=== PATIENT | male | born 1975 | race African-American/Black ===

== ENCOUNTER 2017-03-05 14:44 | Emergency (ER) | payer SELFPAY ==
[2017-03-05 15:01] VITALS: BP 143/87
[2017-03-05] MEDS ORDERED: METOCLOPRAMIDE HCL INJ/PF 10 MG/2 ML SDV IM ONE (17:31)
[2017-03-05] MEDS ORDERED: DIPHENHYDRAMINE HCL 50 MG/ML VIAL IM ONE (17:32)
--- NOTE | 2017-03-05 17:33 | ER Document Report ---
ED Headache - General Chief Complaint: Headache Stated Complaint: HEADACHE,DIZZINESS Time Seen by Provider: 03/05/17 17:21 Mode of Arrival: Ambulatory Information source: Patient Notes: This is a 42-year-old -[place] male with a history of migraines who presents with severe headache. He states that his headache began as a migraine about 1 week ago but that he has not been able to get any relief. He states that he was seen at urgent care 3 days ago and was prescribed Flexeril and prednisone however he is taking his medications with no relief. He denies any fevers or chills. He has had no neck pain or neck stiffness. No nausea or vomiting. No vision changes. TRAVEL OUTSIDE OF THE [place] IN LAST 30 DAYS: No - Related Data Allergies/Adverse Reactions: hydrocodone bitartrate [From Vicodin] Adverse Reaction (Intermediate, Verified 07/15/15 15:08) upset stomach Past Medical History - General Information source: Patient - Social History Smoking Status: Current Every Day Smoker Frequency of alcohol use: Rare Drug Abuse: None Lives with: Family Family History: Arthritis, DM, Hyperlipidemia, Hypertension, Malignancy, Thyroid Disfunction Renal/ Medical History: Denies: Hx Peritoneal Dialysis Musculoskeltal Medical History: Denies Hx Arthritis, Reports Hx Musculoskeletal Deformity, Reports Hx Musculoskeletal Trauma Traumatic Medical History: Reports: Hx Fractures Past Surgical History: Reports: Hx Orthopedic Surgery - Surgery to right hand - Immunizations Immunizations up to date: No Hx Diphtheria, Pertussis, Tetanus Vaccination: No Review of Systems - Review of Systems Constitutional: See HPI. denies: Chills, Fever EENT: No symptoms reported Cardiovascular: No symptoms reported Respiratory: No symptoms reported Gastrointestinal: No symptoms reported Genitourinary: No symptoms reported Musculoskeletal: No symptoms reported Skin: No symptoms reported Hematologic/Lymphatic: No symptoms reported Neurological/Psychological: See HPI Physical Exam - Vital signs Vitals: Temp Pulse Resp BP Pulse Ox 98.2 F 76 14 143/87 H 99 03/05/17 14:58 03/05/17 14:58 03/05/17 14:58 03/05/17 14:58 03/05/17 14:58 - Notes Notes: PHYSICAL EXAMINATION: GENERAL: Well-appearing, well-nourished and in no acute distress, appears to not feel well secondary to headache HEAD: Atraumatic, normocephalic. EYES: Pupils equal round and reactive to light, extraocular movements intact, sclera anicteric, conjunctiva are normal. ENT: nares patent, oropharynx clear without exudates. Moist mucous membranes. NECK: Normal range of motion, supple without lymphadenopathy, no meningismus LUNGS: Breath sounds clear to auscultation bilaterally and equal. No wheezes rales or rhonchi. HEART: Regular rate and rhythm without murmurs ABDOMEN: Soft, nontender, normoactive bowel sounds. No guarding, no rebound. No masses appreciated. EXTREMITIES: Normal range of motion, no pitting or edema. No cyanosis. NEUROLOGICAL: Cranial nerves grossly intact. Normal speech. No Gross focal motor or sensory deficits appreciated. PSYCH: Normal mood, normal affect. SKIN: Warm, Dry, normal turgor, no rashes or lesions noted. Course - Re-evaluation Re-evalutation: 03/05/17 18:11 Pt feeling better after IM medications and would like to leave. He is refusing CT head at this time. He will follow up with PCP, return precautions discussed. - Vital Signs Vital signs: Temp Pulse Resp BP Pulse Ox 98.2 F 76 14 143/87 H 99 03/05/17 14:58 03/05/17 14:58 03/05/17 14:58 03/05/17 14:58 03/05/17 14:58 Discharge - Discharge Clinical Impression: Elevated blood pressure reading Migraine Qualifiers: Migraine type: unspecified Status migrainosus presence: without status migrainosus Intractability: not intractable Qualified Code(s): G43.909 - Migraine, unspecified, not intractable, without status migrainosus Condition: Stable Disposition: HOME, SELF-CARE Additional Instructions: HEADACHE: The physician does not feel that the headache you are experiencing has a serious underlying cause. Most headaches are due to emotional stress, with resultant muscle tension (tension headache). Occasionally, headaches are secondary to changes in the blood vessels of the scalp (vascular headache and migraine headache). Sometimes, a headache is the first symptom of another developing illness, such as a viral infection. You have no evidence of stroke, bleeding, meningitis, or other serious cause of your headache. The treatment of headaches varies with the severity and cause of the pain. Not all headaches need pain shots. In fact, there is evidence that using narcotics for headaches may make them worse in the long run. The physician will determine the therapy that's in your best interest. If you develop a fever, if the headache is different from any you've previously experienced, or if the headache progressively worsens, then call your physician at once or go to the emergency room. REGLAN (METOCLOPRAMIDE): Reglan has been prescribed. This medicine affects the stomach and intestines. It can be used to treat nausea and vomiting, to prevent reflux of stomach acid up into the esophagus, or to increase the contractions of the stomach and intestines. It is often prescribed for esophagitis, and for paralysis of the stomach in diabetics. Reglan can cause either mild restlessness or drowsiness. You should contact the doctor at once if you become extremely restless, anxious, or cannot sleep, or if you develop uncontrollable motions of the lips, tongue, or jaw. Do not take alcohol with this medicine. Do not drive or operate machinery until you have been taking this medicine long enough to know how it affects you. Call the doctor if you develop abdominal pains, lightheadedness, black stool, or blood in the stool or vomitus. USE OF DIPHENHYDRAMINE: Diphenhydramine (Benadryl) is an antihistamine and has been recommended to help treat your headache and to prevent side effects of other medications used to treat headaches. The medication can be repeated four times daily. Age Elixir (12.5 mg/tsp) 25 mg pill adult 1-2 tabs Antihistamines may cause drowsiness, especially with the first dose. Do not operate machinery or drive while under the effects of the medication. Do not combine the medication with alcohol, or with any other medication without talking to your doctor. HIGH BLOOD PRESSURE, NOT TREAT: When your blood pressure was taken today it was elevated. Today's reading was __143/87 . We do not think you need to have your blood pressure treated today. Sometimes, stress or illness causes a temporary elevation of your blood pressure. We suggest that you get your blood pressure measured again during the next few days to see if this elevated blood pressure is more than a temporary abnormality. If your blood pressure is greater than 150/90 on each occasion, you must have treatment. Some simple things you can do to help are: If you have blood pressure medicine but aren't using it regularly, start taking it again. Get some aerobic exercise for at least 20 minutes on a daily basis. (See your doctor before beginning a new exercise program.) Eat a low-fat diet. Lose excess weight. Avoid salty foods and avoid adding salt to any of the foods you eat. Avoid diet pills, decongestants, "energizing" herbs, and other medicines that elevate blood pressure. If left untreated, hypertension greatly enhances your risk for developing heart disease and strokes. Please don't ignore this problem. FOLLOW-UP CARE: If you have been referred to a physician for follow-up care, call the physician s office for an appointment as you were instructed or within the next two days. If you experience worsening or a significant change in your symptoms, notify the physician immediately or return to the Emergency Department at any time for re-evaluation. You refused your head CT today. Should your symptoms worsen at all, please return to the ER for further evaluation. Rest in a dark room and drink plenty of fluids, and continue the prednisone already prescribed to you. Forms: Elevated Blood Pressure
== END 2017-03-05 18:38 | disposition home or self-care (01) ==
LOC: ER 14:44
DX: G43.909 Migraine, unspecified, not intractable, without status migrainosus (principal); R03.0 Elevated blood-pressure reading, without diagnosis of hypertension; R42 Dizziness and giddiness; F17.200 Nicotine dependence, unspecified, uncomplicated
CPT/HCPCS: 99283; 96372; J1200; J2765

== ENCOUNTER 2017-04-13 18:36 | Emergency (ER) | payer MEDICAID ==
[2017-04-13 18:44] VITALS: BP 132/90
--- NOTE | 2017-04-13 19:26 | ER Document Report ---
HPI - HPI Patient complains to provider of: headache Pain Level: 2 Context: 42 yo smokewr, non dm, hyptertensive, male called EMS at 5 pm because dizziness , couldn't breathe, and had chest pain which started after he took his mediations, sat down, went outside to smoke a cigarette, broke out in a sweat with dizzy and chest pain. Layed down on the floor, face was white according to his . Had similar episode while at [facility] at 2:45 pm. Significant other here with him, and mom's good friend are trying to get him evaluated in the ER. Pt is pacing in the room, doesn't not want to stay , wants to follow through with orders from [facility]. He is willing to sign out against medical advice. He states that the risk of him dying is up to him, he is a grown man. STarted on Propranolol 40mg, duloxetine hcl 30mg daily , topiramate 50mg daily, cyclobenzaprine 5mg, aspirin 81mg daily. Started it today. - REPRODUCTIVE Reproductive: DENIES: : - DERM Skin Color: Normal Past Medical History - Social History Smoking Status: Current Every Day Smoker Chew tobacco use (# tins/day): No Frequency of alcohol use: None Drug Abuse: None Family History: Arthritis, DM, Hyperlipidemia, Hypertension, Malignancy, Thyroid Disfunction Patient has suicidal ideation: No Patient has homicidal ideation: No Renal/ Medical History: Denies: Hx Peritoneal Dialysis Musculoskeltal Medical History: Denies Hx Arthritis, Reports Hx Musculoskeletal Deformity, Reports Hx Musculoskeletal Trauma Traumatic Medical History: Reports: Hx Fractures Past Surgical History: Reports: Hx Orthopedic Surgery - Surgery to right hand - Immunizations Immunizations up to date: No Hx Diphtheria, Pertussis, Tetanus Vaccination: No Vertical Provider Document - CONSTITUTIONAL Agree With Documented VS: Yes Exam Limitations: No Limitations - INFECTION CONTROL TRAVEL OUTSIDE OF THE [place] IN LAST 30 DAYS: No - HEENT HEENT: Normocephalic, PERRLA - NECK Neck: Supple. negative: Lymphadenopathy-Left, Lymphadenopathy-Right - RESPIRATORY Respiratory: Breath Sounds Normal, No Respiratory Distress O2 Sat by Pulse Oximetry: 96 - CARDIOVASCULAR Cardiovascular: Regular Rate, Regular Rhythm - GI/ABDOMEN Gastrointestinal: Abdomen Soft, Abdomen Non-Tender, No Organomegaly - BACK Back: Normal Inspection - MUSCULOSKELETAL/EXTREMETIES Musculoskeletal/Extremeties: HI FROM, Non-Tender Notes: no edema - NEURO Level of Consciousness: Awake - DERM Integumentary: Warm, Dry Course - Re-evaluation Re-evalutation: 04/13/17 20:08 after pt spoke with his mom and dad over the phone, he still wants to leave against medical advice and he states he accepts the responibility of possible since he is not staying for any medical work up that is indicate by his history. Nurse Summers witnessed my discussion with the pt and his signature 04/13/17 20:12 dr daniels made aware of this pt and what transpired. - Vital Signs Vital signs: Temp Pulse Resp BP Pulse Ox 98.3 F 84 16 132/90 H 96 04/13/17 18:40 04/13/17 18:40 04/13/17 18:40 04/13/17 18:40 04/13/17 18:40 Discharge - Discharge Clinical Impression: Dizziness, Shortness of breath Chest pain Qualifiers: Chest pain type: unspecified Qualified Code(s): R07.9 - Chest pain, unspecified Condition: Good Disposition: AGAINST MEDICAL ADVICE
[2017-04-13] MEDS ORDERED: ASPIRIN 81 MG TABLET, CHEWABLE PO ONE (19:59)
--- NOTE | 2017-04-16 21:11 | EKG REPORT ---
SEVERITY:- ABNORMAL ECG - SINUS RHYTHM NONSPECIFIC T ABNORMALITIES, INFERIOR LEADS : Confirmed by: Raghu Roque MD 16-Apr-2017 21:10:28
== END 2017-04-13 20:05 | disposition left against medical advice (07) ==
LOC: ER 18:36
DX: R42 Dizziness and giddiness (principal); R06.02 Shortness of breath; R07.9 Chest pain, unspecified; R51 Headache; F17.210 Nicotine dependence, cigarettes, uncomplicated
CPT/HCPCS: 93005; 93010; 99284

== ENCOUNTER → 2017-04-16 | Outpatient (CLI) | payer MEDICAID ==
[2017-04-16 14:35] LABS: ABSOLUTE BASOPHILS # (AUTO) 0.1 10^3/uL (0.0-0.2); ABSOLUTE EOSINOPHILS # (AUTO) 0.1 10^3/uL (0.0-0.6); ABSOLUTE LYMPHOCYTES (AUTO) 2.2 10^3/uL (0.5-4.7); ABSOLUTE MONOCYTES (AUTO) 0.5 10^3/uL (0.1-1.4); BASOPHILS % (AUTO) 0.8 % (0-2); HEMATOCRIT 48.5 % (37.9-51.0); HEMOGLOBIN 16.4 g/dL (13.5-17.0); HGB HCT DIFFERENCE 0.7; LYMPHOCYTES % (AUTO) 32.5 % (13-45); MEAN CORPUSCULAR HEMOGLOBIN 30.3 pg (27.0-33.4); MEAN CORPUSCULAR HGB CONC 33.9 g/dL (32.0-36.0); MEAN CORPUSCULAR VOLUME 90 fl (80-97); MONOCYTES % (AUTO) 6.5 % (3-13); RED BLOOD COUNT 5.42 10^6/uL (4.35-5.55); RED CELL DISTRIBUTION WIDTH 13.9 % (11.5-14.0); SEGMENTED NEUTROPHILS % (AUTO) 58.2 % (42-78); WHITE BLOOD COUNT 6.9 10^3/uL (4.0-10.5)
--- NOTE | 2017-04-16 15:04 | RADIOLOGY REPORT (SQ) ---
EXAM DESCRIPTION: ELBOW LEFT OVER 2 VIEWS COMPLETED DATE/TIME: 04/16/2017 2:22 pm REASON FOR STUDY: L ELBOW PAIN M54.40 LUMBAGO WITH SCIATICA, UNSPECIFIED SIDE M25.522 PAIN IN LEFT ELBOW R07.9 CHEST PAIN, UNSPECIFIED COMPARISON: None. NUMBER OF VIEWS: Four view. TECHNIQUE: AP, lateral, and both oblique radiographic images acquired of the left elbow. LIMITATIONS: None. FINDINGS: MINERALIZATION: Normal. BONES: No acute fracture or dislocation. No worrisome bone lesions. No significant osteophytes. JOINT: No effusions. SOFT TISSUES: No soft tissue swelling. No foreign body. OTHER: No other significant finding. IMPRESSION: NEGATIVE STUDY OF THE LEFT ELBOW. NO EXPLANATION FOR PAIN. TECHNICAL DOCUMENTATION: JOB ID: [id number] [employer]- All Rights Reserved.
[2017-04-16 15:06] LABS: CREATINE KINASE MB 0.93 ng/mL (<4.55)
[2017-04-16 15:10] LABS: TROPONIN I < 0.012 ng/mL
[2017-04-16 15:14] LABS: ERYTHROCYTE SEDIMENTATION RATE 4 mm/hr (0-15)
--- NOTE | 2017-04-16 15:14 | RADIOLOGY REPORT (SQ) ---
EXAM DESCRIPTION: CHEST PA/LAT COMPLETED DATE/TIME: 04/16/2017 2:22 pm REASON FOR STUDY: CHEST PAIN IN ADULT COMPARISON: 06/28/2012 EXAM PARAMETERS: NUMBER OF VIEWS: two views TECHNIQUE: Digital Frontal and Lateral radiographic views of the chest acquired. RADIATION DOSE: NA LIMITATIONS: none FINDINGS: LUNGS AND PLEURA: No opacities, masses or pneumothorax. No pleural effusion. MEDIASTINUM AND HILAR STRUCTURES: No masses or contour abnormalities. HEART AND VASCULAR STRUCTURES: Heart normal size. No evidence for failure. BONES: No acute findings. HARDWARE: None in the chest. OTHER: No other significant finding. IMPRESSION: NO SIGNIFICANT RADIOGRAPHIC FINDING IN THE CHEST. TECHNICAL DOCUMENTATION: JOB ID: [id number] [employer]- All Rights Reserved
[2017-04-16 15:36] LABS: ALANINE AMINOTRANSFERASE 31 U/L (21-72); ALBUMIN 4.4 g/dL (3.5-5.0); ALKALINE PHOSPHATASE 77 U/L (38-126); ANION GAP 10 (5-19); ASPARTATE AMINO TRANSFERASE 23 U/L (17-59); BILIRUBIN,DIRECT 0.3 mg/dL (0.0-0.4); BILIRUBIN,TOTAL 0.6 mg/dL (0.2-1.3); BLOOD UREA NITROGEN 20 mg/dL (7-20); C-REACTIVE PROTEIN 5.4 mg/L (<10.0); CALCIUM 9.6 mg/dL (8.4-10.2); CARBON DIOXIDE 21 mmol/L (22-30); CHLORIDE 111 mmol/L (98-107); CREATINE KINASE 199 U/L (55-170); CREATININE RESULT 1.28 mg/dL (0.52-1.25); GLUCOSE 117 mg/dL (75-110); POTASSIUM 4.4 mmol/L (3.6-5.0); SODIUM 142.2 mmol/L (137-145); TOTAL PROTEIN 7.7 g/dL (6.3-8.2)
--- NOTE | 2017-04-16 15:57 | RADIOLOGY REPORT (SQ) ---
EXAM DESCRIPTION: L SPINE WHOLE COMPLETED DATE/TIME: 04/16/2017 2:22 pm REASON FOR STUDY: ACUTE R SIDED LOW BACK PAIN W/ SCIATICA, SCIATICA LATERALITY UNSPECIFIED M54.40 L UMBAGO WITH SCIATICA, UNSPECIFIED SIDE M25.522 PAIN IN LEFT ELBOW R07.9 CHEST PAIN, UNSPECIFIED COMPARISON: None. NUMBER OF VIEWS: Five views including obliques. TECHNIQUE: AP, lateral, oblique, and sacral radiographic images acquired of the lumbar spine. LIMITATIONS: None. FINDINGS: MINERALIZATION: Normal. SEGMENTATION: Normal. No transitional anatomy. ALIGNMENT: Normal. VERTEBRAE: Maintained height. No fracture or worrisome bone lesion. DISCS: Preserved height. No significant osteophytes or end plate irregularity. POSTERIOR ELEMENTS: Pedicles and facets are intact. No pars defect or posterior arch defects. HARDWARE: None in the spine. PARASPINAL SOFT TISSUES: Normal. PELVIS: Intact as visualized. No fractures or worrisome bone lesions. SI joints intact. OTHER: No other significant finding. IMPRESSION: NORMAL 5 VIEW LUMBAR SPINE. TECHNICAL DOCUMENTATION: JOB ID: [id number] [employer]- All Rights Reserved
--- NOTE | 2017-04-17 08:33 | EKG REPORT ---
SEVERITY:- ABNORMAL ECG - SINUS RHYTHM NONSPECIFIC T ABNORMALITIES, INFERIOR LEADS : Confirmed on behalf of: Raghu Roque MD 17-Apr-2017 08:32:52
== END ==
LOC: RAD 13:19
PROVIDERS: ATTEND Nurse Practitioner Family
DX: M54.40 Lumbago with sciatica, unspecified side (principal); M25.522 Pain in left elbow; R07.9 Chest pain, unspecified; R03.0 Elevated blood-pressure reading, without diagnosis of hypertension
CPT/HCPCS: 36415; 71020; 72110; 80053; 82550; 82553; 83036; 84443; 84484; 85025; 85652; 86140; 93005; 93010

== ENCOUNTER 2017-11-15 01:13 | Emergency (ER) | payer MEDICAID ==
[2017-11-15 07:48] VITALS: BP 101/70
[2017-11-15] MEDS ORDERED: ACETAMINOPHEN 325 MG TABLET PO ONE (08:25)
[2017-11-15] MEDS ORDERED: ONDANSETRON 4 MG TAB.RAPDIS PO ONE (08:25)
--- NOTE | 2017-11-15 08:27 | ER Document Report ---
HPI - HPI Pain Level: 3 Context: Patient is a 42-year-old male presents emergency department with new onset flulike symptoms with associated headache, diarrhea, body aches, hot flashes, nausea and diarrhea. Admits to sick contact in mom. Negative flu vaccine this year. History of migraines, hypertension, hyperlipidemia, low back pain. Follows with Dr. Soriano - NEURO Neurology: REPORTS: Headache, Dizzinesss / Vertigo - CARDIOVASCULAR Cardiovascular: DENIES: Chest pain - URINARY Urinary: DENIES: Dysuria - REPRODUCTIVE Reproductive: DENIES: : Past Medical History - Social History Smoking Status: Current Every Day Smoker Chew tobacco use (# tins/day): No Frequency of alcohol use: Occasional Drug Abuse: None Family History: Arthritis, DM, Hyperlipidemia, Hypertension, Malignancy, Thyroid Disfunction Patient has suicidal ideation: No Patient has homicidal ideation: No Renal/ Medical History: Denies: Hx Peritoneal Dialysis Musculoskeltal Medical History: Denies Hx Arthritis, Reports Hx Musculoskeletal Deformity, Reports Hx Musculoskeletal Trauma Traumatic Medical History: Reports: Hx Fractures Past Surgical History: Reports: Hx Orthopedic Surgery - Surgery to right hand - Immunizations Immunizations up to date: No Hx Diphtheria, Pertussis, Tetanus Vaccination: No Vertical Provider Document - INFECTION CONTROL TRAVEL OUTSIDE OF THE [place] IN LAST 30 DAYS: No - RESPIRATORY O2 Sat by Pulse Oximetry: 95 Course - Re-evaluation Re-evalutation: 11/15/17 08:25 Patient presents with cough, vomiting, diarrhea, and fever at home consistent with a diagnosis of influenza. Influenza testing is positive. Patient is overall well in appearance, in no acute distress. Lung sounds clear. Able to tolerate oral intake without difficulty here in the emergency department. After risks and benefits conversation with the patient regarding the use of Tamiflu, they have elected to use supportive care without Tamiflu based on concerns about lack of efficacy as well as the side effect profile. At this time will discharge with return precautions and follow-up recommendations. Verbal discharge instructions given a the bedside and opportunity for questions given. Medication warnings reviewed. Patient is in agreement with this plan and has verbalized understanding of return precautions and the need for primary care follow-up in the next 24-72 hours. - Vital Signs Vital signs: Temp Pulse Resp BP Pulse Ox 98.8 F 107 H 18 101/70 95 11/15/17 07:34 11/15/17 02:13 11/15/17 07:34 11/15/17 07:34 11/15/17 02:13 Discharge - Discharge Clinical Impression: Flu-like symptoms Condition: Good Disposition: HOME, SELF-CARE Additional Instructions: Your presentation is consistent with influenza. There is no treatment that is effective for this diagnosis other than supportive care at home. This includes drinking plenty of fluids, using Tylenol or ibuprofen as needed for fever and discomfort, and Zofran as needed for nausea and vomiting. You can also utilize imodium which is available over the counter for diarrhea. Please follow closely with you primary care physician the next 1-2 days regarding this diagnosis. Return to the emergency department immediately if you began to have persistent vomiting prevents you from being able to keep fluids down for more than 12 hours, you pass out, you began having difficulty breathing, you become confused, or you have any other symptoms that are worrisome to you. Prescriptions: Ondansetron [Zofran Odt 4 mg Tablet] 1 - 2 tab PO Q4H PRN #15 tab.rapdis PRN Reason: For Nausea/Vomiting Referrals: CARLYN DUNN, PLASTICATOR [Primary Care Provider] - Follow up in 3-5 days
== END 2017-11-15 08:45 | disposition home or self-care (01) ==
LOC: ER 01:13
DX: R51 Headache (principal); R19.7 Diarrhea, unspecified; R11.2 Nausea with vomiting, unspecified; I10 Essential (primary) hypertension; R42 Dizziness and giddiness; R50.9 Fever, unspecified; F17.200 Nicotine dependence, unspecified, uncomplicated
CPT/HCPCS: 99283; J3490; S0119

== ENCOUNTER 2017-12-03 22:15 | Emergency (ER) | payer MEDICAID ==
--- NOTE | 2017-12-03 22:42 | RADIOLOGY REPORT (SQ) ---
EXAM DESCRIPTION: FINGER RIGHT COMPLETED DATE/TIME: 12/03/2017 10:32 pm REASON FOR STUDY: pain s/p injury COMPARISON: None. NUMBER OF VIEWS: Three views. TECHNIQUE: AP, lateral, and oblique images acquired of the right thumb. LIMITATIONS: None. FINDINGS: MINERALIZATION: Normal. BONES: No acute fracture or dislocation. No worrisome bone lesions. SOFT TISSUES: No soft tissue swelling. No foreign body. OTHER: No other significant finding. IMPRESSION: NO RADIOGRAPHIC EVIDENCE OF ACUTE INJURY. COMMENT: SITE OF TRAUMA/COMPLAINT MARKED/STAMP COMPLETED: YES. TECHNICAL DOCUMENTATION: JOB ID: [id number] [employer]- All Rights Reserved Reading location - IP/workstation name: [email or web address]
[2017-12-03 22:58] VITALS: BP 139/86
[2017-12-03] MEDS ORDERED: ACETAMINOPHEN 325 MG TABLET PO ONE (23:17)
--- NOTE | 2017-12-03 23:23 | ER Document Report ---
ED Hand/Wrist Injury - General Chief Complaint: R thumb injury Stated Complaint: THUMB INJURY Time Seen by Provider: 12/03/17 22:31 Mode of Arrival: Ambulatory Information source: Patient Notes: 22-year-old male presented ED for complaint of right thumb pain for the last 2 days. States he fell off a porch and thought he dislocated his thumb and he pulled on it at home. He states he has not followed up with the doctor. TRAVEL OUTSIDE OF THE [place] IN LAST 30 DAYS: No - HPI Injury to: Thumb - Right Onset: Other - 2 days ago Where: Home, Outdoors Timing: Still present Quality of pain: Achy, Throbbing Severity: Moderate Pain Level: 3 Context: Fall - Related Data Allergies/Adverse Reactions: hydrocodone bitartrate [From Vicodin] Adverse Reaction (Intermediate, Verified 04/13/17 18:42) upset stomach Past Medical History - General Information source: Patient - Social History Smoking Status: Current Every Day Smoker Cigarette use (# per day): Yes - Pack per day Chew tobacco use (# tins/day): No Smoking Education Provided: Yes - 4 minutes Frequency of alcohol use: Social Drug Abuse: None Occupation: None Lives with: Alone Family History: Arthritis, DM, Hyperlipidemia, Hypertension, Malignancy, Thyroid Disfunction. denies: CAD, COPD, CVA Patient has suicidal ideation: No Patient has homicidal ideation: No - Past Medical History Cardiac Medical History: Reports: None Pulmonary Medical History: Reports: None EENT Medical History: Reports: None Neurological Medical History: Reports: None Endocrine Medical History: Reports: None Renal/ Medical History: Reports: None Malignancy Medical History: Reports None GI Medical History: Reports: None Musculoskeltal Medical History: Reports Hx Musculoskeletal Deformity, Reports Hx Musculoskeletal Trauma Skin Medical History: Reports None Psychiatric Medical History: Reports: None Traumatic Medical History: Reports: Hx Fractures - right hand Infectious Medical History: Reports: None Past Surgical History: Reports: Hx Orthopedic Surgery - Surgery to right hand - Immunizations Immunizations up to date: No Hx Diphtheria, Pertussis, Tetanus Vaccination: No Review of Systems - Review of Systems Notes: Constitutional: [PRESENT: as per HPI. ABSENT: chills, fever(s), headache(s), weight gain, weight loss] Eyes: [ABSENT: visual disturbances] Ears: [ABSENT: hearing changes] Cardiovascular: [ABSENT: chest pain, dyspnea on exertion, edema, orthropnea, palpitations] Respiratory: [ABSENT: cough, hemoptysis] Gastrointestinal: [ABSENT: abdominal pain, constipation, diarrhea, hematemesis, hematochezia, nausea, vomiting] Genitourinary: [ABSENT: dysuria, hematuria] Musculoskeletal: Right thumb pain Integumentary: [ABSENT: rash, wounds] Neurological: [ABSENT: abnormal gait, abnormal speech, confusion, dizziness, focal weakness, syncope] Psychiatric: [ABSENT: anxiety, depression, homicidal ideation, suicidal ideation ] Endocrine: [ABSENT: cold intolerance, heat intolerance, menstrual abnormalities , polydipsia, polyuria] Hematologic/Lymphatic: [ABSENT: easy bleeding, easy bruising, lymphadenopathy] Physical Exam - Vital signs Vitals: Temp Pulse Resp BP Pulse Ox 98.6 F 96 18 144/87 H 98 12/03/17 22:20 12/03/17 22:20 12/03/17 22:20 12/03/17 22:20 12/03/17 22:20 - Notes Notes: PHYSICAL EXAMINATION: GENERAL: Well-appearing, well-nourished and in no acute distress. HEAD: Atraumatic, normocephalic. EYES: Pupils equal round and reactive to light, extraocular movements intact, sclera anicteric, conjunctiva are normal. ENT: Nares patent, oropharynx clear without exudates. Moist mucous membranes. NECK: Normal range of motion, supple without lymphadenopathy LUNGS: Breath sounds clear to auscultation bilaterally and equal. No wheezes rales or rhonchi. HEART: Regular rate and rhythm without murmurs ABDOMEN: Soft, nontender, nondistended abdomen. No guarding, no rebound. No masses appreciated. Musculoskeletal: Right thumb pain swelling no active bruising noted NEUROLOGICAL: Cranial nerves grossly intact. Normal speech, normal gait. Normal sensory, motor exams PSYCH: Normal mood, normal affect. SKIN: Warm, Dry, normal turgor, no rashes or lesions noted. Course - Vital Signs Vital signs: Temp Pulse Resp BP Pulse Ox 98.4 F 101 H 18 139/86 H 97 12/03/17 22:58 12/03/17 22:58 12/03/17 22:58 12/03/17 22:58 12/03/17 22:58 - Diagnostic Test Radiology reviewed: Image reviewed, Reports reviewed Discharge - Discharge Clinical Impression: Contusion of right thumb Qualifiers: Encounter type: initial encounter Damage to nail status: without damage Qualified Code(s): S60.011A - Contusion of right thumb without damage to nail, initial encounter Condition: Stable Disposition: HOME, SELF-CARE Additional Instructions: Contusion Your injury has resulted in a contusion -- a crushing of the deep tissues. No injury to important structures was detected during the physician's exam. Contusions vary in the amount of pain they cause, and in the length of time required for healing. Typically, the area will become bruised, and will remain painful to touch for two or three weeks. However, most patients are back to working and playing within a few days. After the initial period of rest and cold-packs, your symptoms (together with the doctor's recommendations) will determine how rapidly you can get back to full activity. Usually this means "do what feels okay, but don't do things that hurt." If re-examination was recommended, it's important to follow up as instructed. Call the doctor or return any time if pain increases, if swelling becomes severe, if you develop numbness or weakness in an injured extremity, or if any other alarming symptoms occur. Acetaminophen Acetaminophen may be taken for pain relief or fever control. It's much safer than aspirin, offering a wider range of "safe" dosages. It is safe during . Some brand names are Tylenol, Panadol, Datril, Anacin 3, Tempra, and Liquiprin. Acetaminophen can be repeated every four hours. The following are maximum recommended dosages: WEIGHT Dose Drops Elixir Chewable( 80mg) (LBS.) drprs=droppers tsp=teaspoon 6 40 mg .4 ml (1/2) 6-11 80 mg .8 ml (full) 1/2 tsp 1 tab 12-16 120 mg 1 1/2 drprs 3/4 tsp 1 1/2 tabs 17-23 160 mg 2 drprs 1 tsp 2 tabs 24-30 240 mg 3 drprs 1 1/2 tsp 3 tabs 30-35 320 mg 2 tsp 4 tabs 36-41 360 mg 2 1/4 tsp 4 1 /2 tabs 42-47 400 mg 2 1/2 tsp 5 tabs 48-53 480 mg 3 tsp 6 tabs 54-59 520 mg 3 1/4 tsp 6 1 /2 tabs 60-64 560 mg 3 1/2 tsp 7 tabs 65-70 600 mg 3 3/4 tsp 7 1 /2 tabs 71-76 640 mg 4 tsp 8 tabs 77-82 720 mg 4 1/2 tsp 9 tabs 83-88 800 mg 5 tsp 10 tabs >89 pounds or adults 650 mg to 900 mg Acetaminophen can be repeated every four hours. Maximum daily dose not to exceed 4000 mg. These maximum recommended dosages are slightly higher than the dosages written on the product container, but these dosages are very safe and well below the toxic dosage for acetaminophen. Ibuprofen Ibuprofen is an excellent, safe drug for pain control. In addition, it has potent antiinflammatory effects which are beneficial, especially in the treatment of injuries, arthritis, or tendonitis. It's best to take ibuprofen with food. Persons with ulcer disease or allergy to aspirin should notify their physician of this before taking ibuprofen. Take the medication exactly as prescribed. Don't take additional doses unless instructed to do so by your doctor. If you develop wheezing, shortness of breath, hives, faintness, stomach pain, vomiting, or dark black stools, return for re-evaluation at once. Ibuprofen Ibuprofen is an excellent, safe drug for pain control. In addition, it has potent antiinflammatory effects which are beneficial, especially in the treatment of injuries, arthritis, or tendonitis. It's best to take ibuprofen with food. Persons with ulcer disease or allergy to aspirin should notify their physician of this before taking ibuprofen. Take the medication exactly as prescribed. Don't take additional doses unless instructed to do so by your doctor. If you develop wheezing, shortness of breath, hives, faintness, stomach pain, vomiting, or dark black stools, return for re-evaluation at once. FOLLOW-UP CARE: If you have been referred to a physician for follow-up care, call the physician s office for an appointment as you were instructed or within the next two days. If you experience worsening or a significant change in your symptoms, notify the physician immediately or return to the Emergency Department at any time for re-evaluation. Forms: Elevated Blood Pressure, Smoking Cessation Education Referrals: CARLYN DUNN NP [Primary Care Provider] - Follow up as needed LAKSHMI NOEL MD [ACTIVE STAFF] - Follow up as needed
== END 2017-12-03 23:27 | disposition home or self-care (01) ==
LOC: ER 22:15
DX: S60.011A Contusion of right thumb without damage to nail, initial encounter (principal); W17.89XA Other fall from one level to another, initial encounter; Y92.008 Other place in unspecified non-institutional (private) residence as the place of occurrence of the external cause; F17.210 Nicotine dependence, cigarettes, uncomplicated
CPT/HCPCS: 99406; 99283; 73140; J3490

== ENCOUNTER → 2018-02-12 | Outpatient (CLI) | payer MEDICAID ==
--- NOTE | 2018-02-12 20:34 | RADIOLOGY REPORT ---
STRESS TEST REPORT PAT[facility] NAME[id number] ROOM#: DATE OF SERVICE: 02/12/2018 AGE: 42Y ORDER#: [id number] REFERRING MD: MALCOM COLEMAN M.D. PROCEDURE PERFORMED: Rest/stress single-isotope Cardiolite SPECT imaging with exercise stress and gated SPECT imaging. INDICATION: For assessment of chest pains. CLINICAL HISTORY: This 42-year-old white male with no known coronary artery disease but has cardiac risk factors of hypercholesterolemia, smoking, and hypertension, current symptomatology includes atypical chest pain. REPORT Patient performed treadmill exercise using a standard MAGDALENA protocol, completing 7 minutes and an estimated workload of 7.5 METS. The last minute speed was modified due to his shortness of breath. The resting heart rate was 82 BPM and increased to 176 BPM as he exercised, this was 98% of maximum predicted heart rate for age. The blood pressure response to exercise was normal. Resting blood pressure was 139/82 and blood pressure at peak exercise was 185/46. Patient did not complain of any chest pains but had severe shortness of breath during the treadmill procedure, specifically last minute, he was very short of breath. There was no chest pain. The resting EKG showed normal sinus rhythm, 80 BPM, ST elevations were seen, generalized. At peak exercise, his treadmill EKG showed [address] depression, upsloping, in leads V4 to V6, this lasted less than 1 minute, not typical of myocardial ischemia. Myocardial perfusion imaging was performed at rest 60 minutes following the injection of 14.88 mCi of Cardiolite. At peak exercise, patient was injected with 45.8 mCi of Cardiolite and exercise continued for 1 more minute at a slower speed. Gated post-stress tomographic imaging was performed 60 minutes after stress. FINDINGS: The overall quality of the study is fair. The left ventricular cavity is noted to be normal in size on both the rest and stress studies. There is no evidence of abnormal transient ischemic dilatation of the left ventricle. TID ratio was 0.79 and normal. The SPECT images showed a small area of moderate reversible ischemia in the apical anterior wall of the left ventricle. There is a small moderate fixed perfusion defect in the basal inferior wall as well. The gated SPECT imaging showed reduced motion contraction of the basal inferior wall segments. The left ventricular ejection fraction was calculated to be 47%, mildly impaired. * IMPRESSION: Myocardial perfusion imaging is abnormal. There is 1 small area of a reversible ischemia in the apical anterior wall consistent with diagonal territory ischemia. There is also a small moderate fixed perfusion defect in the basal inferior wall with reduced motion contraction in that area, suggesting previous myocardial infarction. Overall, left ventricular systolic function was mildly impaired with reduced motion contraction in the basal inferior wall. No prior study for comparison. Consider cardiac catheterization if uncontrollable chest pains. INTERPRETING PHYSICIAN: MALCOM COLEMAN M.D. /: [id number] TT: 2017 ID: [id number] /: [id number] TD: [id number] JOB: [id number] cc:MALCOM COLEMAN M.D. > MTDD
== END ==
LOC: RAD 06:04
PROVIDERS: ATTEND Internal Medicine Cardiovascular Disease
DX: R07.89 Other chest pain (principal)
CPT/HCPCS: 93017; 78452; A9500; Q9969

== ENCOUNTER 2018-03-17 20:15 | Emergency (ER) | payer MEDICAID ==
[2018-03-17 20:40] VITALS: BP 118/69
[2018-03-17] MEDS ORDERED: OXYCODONE-ACETAMINOPHEN 5-325 MG TABLET PO ONE (21:15)
--- NOTE | 2018-03-17 21:51 | RADIOLOGY REPORT (SQ) ---
EXAM DESCRIPTION: SHOULDER LEFT 2 OR MORE VIEWS COMPLETED DATE/TIME: 03/17/2018 8:52 pm REASON FOR STUDY: pain s/p injury . Generalized pain status post wrestling, felt a pop. COMPARISON: None. NUMBER OF VIEWS: Four views. TECHNIQUE: Internal rotation, external rotation, Y view, and neutral images acquired of the left florentino ulder. LIMITATIONS: None. FINDINGS: MINERALIZATION: Normal. BONES: No acute fracture or dislocation. No worrisome bone lesions. JOINTS: No dislocation. VISUALIZED LUNGS AND RIBS: No pneumothorax. No displaced rib fracture. SOFT TISSUES: No radiopaque foreign body. IMPRESSION: No radiographic evidence of acute injury. TECHNICAL DOCUMENTATION: JOB ID: [id number] [employer]- All Rights Reserved Reading location - IP/workstation name: [email or web address]
--- NOTE | 2018-03-17 22:00 | ER Document Report ---
HPI - HPI Pain Level: 4 Context: Patient is a 43-year-old male presents emerged from the chief complaint of left shoulder pain. Patient states he was wrestling with his kids when he felt his shoulder pop. Patient states he has been able to move it since but admits to aching in the joint. He denies any numbness or tingling, weakness in the left upper extremity. Otherwise healthy male. States that he takes OxyContin for chronic back pain at home. - CONSTITUTIONAL Constitutional: DENIES: Fever, Chills - EENT EENT: DENIES: Sore Throat, Ear Pain, Eye problems - NEURO Neurology: DENIES: Headache, Weakness, Vision blurred, Dizzinesss / Vertigo - CARDIOVASCULAR Cardiovascular: DENIES: Chest pain - RESPIRATORY Respiratory: DENIES: Trouble Breathing, Coughing - GASTROINTESTINAL Gastrointestinal: DENIES: Abdominal Pain, Black / Bloody Stools - REPRODUCTIVE Reproductive: DENIES: : - MUSCULOSKELETAL Musculoskeletal: REPORTS: Extremity pain - left shoulder Past Medical History - Social History Smoking Status: Never Smoker Family History: Arthritis, DM, Hyperlipidemia, Hypertension, Malignancy, Thyroid Disfunction. denies: CAD, COPD, CVA Patient has suicidal ideation: No Patient has homicidal ideation: No Renal/ Medical History: Denies: Hx Peritoneal Dialysis Musculoskeltal Medical History: Denies Hx Arthritis, Reports Hx Musculoskeletal Deformity, Reports Hx Musculoskeletal Trauma Traumatic Medical History: Reports: Hx Fractures - right hand Past Surgical History: Reports: Hx Orthopedic Surgery - Surgery to right hand - Immunizations Immunizations up to date: No Hx Diphtheria, Pertussis, Tetanus Vaccination: No Vertical Provider Document - CONSTITUTIONAL Agree With Documented VS: Yes Notes: PHYSICAL EXAM GENERAL: Alert, interacts well. HEAD: Normocephalic, atraumatic. EXTREMITIES: Patient with guarded range of motion of the left shoulder but able to fully extend, internally and externally rotate and abduct and abduct. Moves all 4 extremities spontaneously. No edema, radial and dorsalis pedis pulses 2/4 bilaterally. No cyanosis. NEUROLOGICAL: Alert and oriented x4. Normal speech. PSYCH: Normal affect, normal mood. SKIN: Warm, dry, normal turgor. No rashes or lesions noted. - INFECTION CONTROL TRAVEL OUTSIDE OF THE [place] IN LAST 30 DAYS: No Course - Re-evaluation Re-evalutation: 06/10/18 22:00 Patient is a 43-year-old male who presents with clinical history significant for possible shoulder dislocation however no evidence of dislocation noted on x- ray. Patient placed in sling. No evidence of a septic joint, gout flare, dislocation, or fracture on exam and imaging. Vitals wnl. At this time, I do not see an indication for labs or further imaging. Will discharge with conservative measures, return precautions, and follow-up recommendations. - Vital Signs Vital signs: Temp Pulse Resp BP Pulse Ox 98.8 F 108 H 16 118/69 98 03/17/18 20:38 03/17/18 20:38 03/17/18 20:38 03/17/18 20:38 03/17/18 20:38 - Diagnostic Test Radiology reviewed: Image reviewed, Reports reviewed Discharge - Discharge Clinical Impression: Shoulder injury Condition: Good Disposition: HOME, SELF-CARE Instructions: Sling as Treatment (OM) Additional Instructions: You do not have evidence of a fracture on today's xrays. Your pain is likely to do soft tissue swelling and inflammation. This can last up to 6 weeks before completely resolving. You should continue to apply ice to the area regularly, keep the affected area elevated, and take ibuprofen 600mg every 6 hours as needed for pain. Please return if you have worsening pain, weakness, numbness, notice increasing redness or swelling to the area, develop a fever, or have any other symptoms that are concerning to you. Referrals: CARLYN DUNN, COLLECTION DEVELOPMENT LIBRARIAN [Primary Care Provider] - Follow up as needed
== END 2018-03-17 22:24 | disposition home or self-care (01) ==
LOC: ER 20:15
DX: S49.90XA Unspecified injury of shoulder and upper arm, unspecified arm, initial encounter (principal); M25.512 Pain in left shoulder; X58.XXXA Exposure to other specified factors, initial encounter
CPT/HCPCS: 99284; 73030; L3650

== ENCOUNTER → 2018-07-25 | Outpatient (CLI) | payer MEDICAID ==
[2018-07-25 11:20] LABS: ALANINE AMINOTRANSFERASE 35 U/L (21-72); ALBUMIN 4.5 g/dL (3.5-5.0); ALKALINE PHOSPHATASE 71 U/L (38-126); ANION GAP 9 (5-19); ASPARTATE AMINO TRANSFERASE 29 U/L (17-59); BILIRUBIN,DIRECT 0.3 mg/dL (0.0-0.4); BILIRUBIN,TOTAL 0.8 mg/dL (0.2-1.3); BLOOD UREA NITROGEN 15 mg/dL (7-20); CALCIUM 10.1 mg/dL (8.4-10.2); CARBON DIOXIDE 26 mmol/L (22-30); CHLORIDE 106 mmol/L (98-107); CHOLESTEROL 186.12 mg/dL (0-200); GLUCOSE 130 mg/dL (75-110); POTASSIUM 5.3 mmol/L (3.6-5.0); TOTAL PROTEIN 7.6 g/dL (6.3-8.2); TRIGLYCERIDES 136 mg/dL (<150)
[2018-07-25 11:31] LABS: DIRECT LDL 114 mg/dL (<100)
== END ==
LOC: OD 09:54
PROVIDERS: ATTEND Internal Medicine Cardiovascular Disease
DX: E78.00 Pure hypercholesterolemia, unspecified (principal); I10 Essential (primary) hypertension; E66.09 Other obesity due to excess calories; Z79.899 Other long term (current) drug therapy
CPT/HCPCS: 36415; 80048; 80061; 80076; 84443

== ENCOUNTER → 2019-07-22 | Outpatient (CLI) | payer MEDICAID ==
[2019-07-22 11:28] LABS: ALBUMIN 4.3 g/dL (3.5-5.0); ALKALINE PHOSPHATASE 67 U/L (38-126); ASPARTATE AMINO TRANSFERASE 28 U/L (17-59); BILIRUBIN,DIRECT 0.2 mg/dL (0.0-0.4); BILIRUBIN,TOTAL 0.6 mg/dL (0.2-1.3); CHOLESTEROL 150.15 mg/dL (0-200); TOTAL PROTEIN 7.2 g/dL (6.3-8.2); TRIGLYCERIDES 105 mg/dL (<150)
[2019-07-22 11:39] LABS: DIRECT LDL 98 mg/dL (<100)
== END ==
LOC: OD 09:44
PROVIDERS: ATTEND Physician Assistant
DX: E78.00 Pure hypercholesterolemia, unspecified (principal); Z79.899 Other long term (current) drug therapy
CPT/HCPCS: 36415; 80061; 80076

== ENCOUNTER → 2019-11-04 | Outpatient (CLI) | payer MEDICAID ==
[2019-11-04 11:00] LABS: ALBUMIN 4.2 g/dL (3.5-5.0); ALKALINE PHOSPHATASE 64 U/L (38-126); ASPARTATE AMINO TRANSFERASE 30 U/L (17-59); BILIRUBIN,TOTAL 0.8 mg/dL (0.2-1.3); CHOLESTEROL 152.06 mg/dL (0-200); TOTAL PROTEIN 6.7 g/dL (6.3-8.2); TRIGLYCERIDES 107 mg/dL (<150)
[2019-11-04 11:13] LABS: DIRECT LDL 99 mg/dL (<100)
== END ==
LOC: OD 10:02
PROVIDERS: ATTEND Physician Assistant
DX: E78.00 Pure hypercholesterolemia, unspecified (principal); Z79.899 Other long term (current) drug therapy
CPT/HCPCS: 36415; 80061; 80076

== ENCOUNTER → 2019-12-30 | Outpatient (CLI) | payer MEDICAID ==
[2019-12-30 09:03] LABS: ALBUMIN 4.3 g/dL (3.5-5.0); ALKALINE PHOSPHATASE 68 U/L (38-126); ANION GAP 9 (5-19); ASPARTATE AMINO TRANSFERASE 33 U/L (17-59); BILIRUBIN,TOTAL 0.5 mg/dL (0.2-1.3); BLOOD UREA NITROGEN 17 mg/dL (7-20); CALCIUM 9.7 mg/dL (8.4-10.2); CARBON DIOXIDE 21 mmol/L (22-30); CHLORIDE 109 mmol/L (98-107); CHOLESTEROL 135.15 mg/dL (0-200); GLUCOSE 109 mg/dL (75-110); POTASSIUM 4.3 mmol/L (3.6-5.0); TOTAL PROTEIN 7.3 g/dL (6.3-8.2); TRIGLYCERIDES 150 mg/dL (<150)
[2019-12-30 09:41] LABS: DIRECT LDL 84 mg/dL (<100)
== END ==
LOC: OD 07:36
PROVIDERS: ATTEND Internal Medicine Cardiovascular Disease
DX: E78.00 Pure hypercholesterolemia, unspecified (principal); I10 Essential (primary) hypertension; Z79.899 Other long term (current) drug therapy
CPT/HCPCS: 36415; 80048; 80061; 80076; 83036

== ENCOUNTER 2020-05-17 20:34 | Emergency (ER) | payer MEDICAID ==
[2020-05-17 20:46] VITALS: BP 144/79
--- NOTE | 2020-05-17 23:13 | ER Document Report ---
ED Medical Screen (RME) - General Chief Complaint: Chest Pain Stated Complaint: CHEST PAIN Primary Care Provider: MALCOM COLEMAN MD [Primary Care Provider] - Follow up as needed Notes: 45-year-old male with past medical history of hypertension, diabetes and 2 stent placements last year presenting with intermittent chest pain starting on Sunday with associated right arm numbness/tingling. Noticed while he was driving. He went home and rested and pain resolved. Chest pain and dizziness has been intermittent since Sunday. His nitro helped alleviate the pain. States the pain is worse when he is up and walking. It decreases when he is at rest. Is substernal. Also reports dizziness. 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 Has a follow up with them on Sunday. He denies any fevers, chills, or additional symptoms at this time. TRAVEL OUTSIDE OF THE [place] IN LAST 30 DAYS: No - Related Data Allergies/Adverse Reactions: hydrocodone Allergy (Verified 12/08/19 13:05) hydrocodone bitartrate [From Vicodin] Adverse Reaction (Intermediate, Verified 12/08/19 13:05) upset stomach Home Medications: nitroglycerin, ASA, Metformin, Lisinopril, Clopidogril, To piramte, Atorvastatin, Ezetimize, Oxycoton, Dextroampetmphetamin Past Medical History - Social History Frequency of alcohol use: None Drug Abuse: None Family history: None - Past Medical History Cardiac Medical History: Reports: Hx Hypertension Endocrine Medical History: Reports: Hx Diabetes Mellitus Type 2 Renal/ Medical History: Denies: Hx Peritoneal Dialysis Musculoskeltal Medical History: Denies Hx Arthritis, Reports Hx Musculoskeletal Deformity, Reports Hx Musculoskeletal Trauma Traumatic Medical History: Reports: Hx Fractures - right hand Past Surgical History: Reports: Hx Cardiac Surgery - stents, Hx Orthopedic Surgery - R hand, Other - Cardiac Stent placement - Immunizations Immunizations up to date: No Hx Diphtheria, Pertussis, Tetanus Vaccination: No Physical Exam - Vital signs Vitals: Temp Pulse Resp BP Pulse Ox 98.7 F 80 16 144/79 H 98 05/17/20 20:44 05/17/20 20:44 05/17/20 20:44 05/17/20 20:44 05/17/20 20:44 Course - Vital Signs Vital signs: Temp Pulse Resp BP Pulse Ox 98.7 F 80 16 144/79 H 98 05/17/20 20:44 05/17/20 20:44 05/17/20 20:44 05/17/20 20:44 05/17/20 20:44 Doctor's Discharge - Discharge Referrals: MALCOM COLEMAN MD [Primary Care Provider] - Follow up as needed
--- NOTE | 2020-05-17 23:18 | EKG REPORT ---
SEVERITY:- BORDERLINE ECG - SINUS RHYTHM PROBABLE LEFT ATRIAL ABNORMALITY : Confirmed by: Ricky Martell 17-May-2020 23:17:43
[2020-05-17 23:44] LABS: ABSOLUTE EOSINOPHILS # (AUTO) 0.2 10^3/uL (0.0-0.6); ABSOLUTE LYMPHOCYTES (AUTO) 3.4 10^3/uL (0.5-4.7); ABSOLUTE MONOCYTES (AUTO) 0.6 10^3/uL (0.1-1.4); ABSOLUTE NEUT (AUTO) 6.1 10^3/uL (1.7-8.2); BASOPHILS % (AUTO) 0.5 % (0-2); EOSINOPHILS % (AUTO) 2.3 % (0-6); HEMATOCRIT 44.8 % (37.9-51.0); HEMOGLOBIN 15.2 g/dL (13.5-17.0); LYMPHOCYTES % (AUTO) 32.9 % (13-45); MEAN CORPUSCULAR HGB CONC 33.9 g/dL (32.0-36.0); MEAN CORPUSCULAR VOLUME 92 fl (80-97); MONOCYTES % (AUTO) 5.5 % (3-13); PLATELET COUNT 223 10^3/uL (150-450); SEGMENTED NEUTROPHILS % (AUTO) 58.8 % (42-78); TOTAL CELLS COUNTED % (AUTO) 100 %; WHITE BLOOD COUNT 10.3 10^3/uL (4.0-10.5)
--- NOTE | 2020-05-17 23:56 | RADIOLOGY REPORT (SQ) ---
CLINICAL INDICATION: chest pain. TECHNIQUE: A single portable AP view was obtained of the chest at 2341 hours. COMPARISON: April 16, 2017. FINDINGS: The cardiomediastinal silhouette is top normal and stable. The lungs are grossly clear. No evidence of effusion or pneumothorax. The visualized bones are unremarkable. IMPRESSION: No evidence of active intrathoracic disease. Mild chronic change, no adverse change
[2020-05-18 00:04] LABS: ALBUMIN 4.7 g/dL (3.5-5.0); ALKALINE PHOSPHATASE 68 U/L (38-126); ANION GAP 7 (5-19); ASPARTATE AMINO TRANSFERASE 25 U/L (17-59); BILIRUBIN,TOTAL 0.6 mg/dL (0.2-1.3); BLOOD UREA NITROGEN 15 mg/dL (7-20); CALCIUM 9.6 mg/dL (8.4-10.2); CARBON DIOXIDE 21 mmol/L (22-30); CHLORIDE 111 mmol/L (98-107); CREATINE KINASE 296 U/L (55-170); GLUCOSE 102 mg/dL (75-110); POTASSIUM 4.1 mmol/L (3.6-5.0); TOTAL PROTEIN 7.7 g/dL (6.3-8.2)
== END 2020-05-18 08:10 | disposition left against medical advice (07) ==
LOC: ER 20:34
DX: R07.2 Precordial pain (principal); R20.0 Anesthesia of skin; R20.2 Paresthesia of skin; R42 Dizziness and giddiness; I10 Essential (primary) hypertension; E11.9 Type 2 diabetes mellitus without complications; Z95.5 Presence of coronary angioplasty implant and graft; Z79.899 Other long term (current) drug therapy; Z79.82 Long term (current) use of aspirin; Z79.84 Long term (current) use of oral hypoglycemic drugs; Z79.891 Long term (current) use of opiate analgesic; Z53.20 Procedure and treatment not carried out because of patient's decision for unspecified reasons
CPT/HCPCS: 36415; 71045; 80053; 82550; 84484; 85025; 93005; 93010; 99281

== ENCOUNTER → 2020-05-31 | Outpatient (CLI) | payer MEDICAID ==
--- NOTE | 2020-05-31 13:14 | DRAGON STRESS TEST REPORT ---
Pharmacological nuclear stress test Date: May 31, 2020 Referring physician: Ritika Power PA-C Performing physician: Vishal Monk MD Indication: Chest pain Clinical history 45 year-old with medical history significant for systemic hypertension and dyslipidemia presenting with chest pain. Referring physician has requested exercise nuclear stress test For further evaluation of myocardial ischemia as etiology of chest pain. Procedure The patient presented to the stress lab. Initially rest images were obtained according to standard protocol after the injection of 14.18 millicurie technetium 99m sestamibi. Subsequently the patient underwent exercise nuclear stress test according to Richy protocol. The patient exercised on the treadmill according to Richy protocol for a total of 7 minutes and 30 seconds achieving a maximum heart rate of 164 bpm which was 93 % of maximum predicted of 176 bpm. The maximum workload was 10.1 METS. The presenting EKG showed sinus rhythm at 85 bpm. The initial blood pressure was 115/83 mmHg. upon exercise the heart rate efe to a maximum of 164 beats per minute and the blood pressure efe to a maximum of 161/96 mmHg. The patient had appropriate increment in heart rate and blood pressure with exercise. At peak exercise the patient was injected with 43.9 millicuries of technetium 99m sestamibi. The patient continued to run on the treadmill for another 60 seconds. The exercise EKG was negative for myocardial ischemia. At peak exercise there was movement related artifact which made interpretation of the EKG difficult. The recovery EKG did not reveal any evidence of myocardial ischemia. The patient tolerated the exercise well and did not report chest pain or dyspnea. The test was terminated on account of patient fatigue and patient having achieved target heart rate. The patient's EKG and vital signs were monitored throughout the procedure. After a period of rest, stress images were obtained according to standard protocol. Raw as well as processed rest and stress images were reviewed. There was mild gut uptake which did not interfere with the study. The rest and stress images show uniform uptake of radioactive isotope without any fixed or reversible defects to suggest myocardial ischemia or myocardial infarction. There is normal contractility post-stress. The calculated ejection fraction is 52 %. The TID ratio is 0.97. Conclusion The exercise EKG is negative for myocardial ischemia but limited by movement artifact especially at peak exercise. There is no scintigraphic evidence for myocardial ischemia or myocardial infarction. Suboptimal exercise tolerance. Normal heart rate and blood pressure response to exercise. There is normal contractility post stress. Gated left ventricular ejection fraction is estimated at 52 %. MTDD
== END ==
LOC: RAD 07:24
PROVIDERS: ATTEND Physician Assistant
DX: R07.9 Chest pain, unspecified (principal)
CPT/HCPCS: 93017; 78452; A9500; Q9969

== ENCOUNTER → 2020-06-03 | Outpatient (CLI) | payer MEDICAID ==
[2020-06-03 11:58] LABS: ALBUMIN 4.5 g/dL (3.5-5.0); ALKALINE PHOSPHATASE 64 U/L (38-126); ANION GAP 9 (5-19); ASPARTATE AMINO TRANSFERASE 24 U/L (17-59); BILIRUBIN,DIRECT 0.3 mg/dL (0.0-0.4); BILIRUBIN,TOTAL 0.4 mg/dL (0.2-1.3); BLOOD UREA NITROGEN 20 mg/dL (7-20); CALCIUM 9.3 mg/dL (8.4-10.2); CARBON DIOXIDE 20 mmol/L (22-30); CHLORIDE 112 mmol/L (98-107); CHOLESTEROL 136.68 mg/dL (0-200); GLUCOSE 123 mg/dL (75-110); POTASSIUM 4.5 mmol/L (3.6-5.0); TOTAL PROTEIN 7.3 g/dL (6.3-8.2); TRIGLYCERIDES 79 mg/dL (<150)
[2020-06-03 12:09] LABS: DIRECT LDL 76 mg/dL (<100)
== END ==
LOC: OD 10:21
PROVIDERS: ATTEND Internal Medicine Cardiovascular Disease
DX: R73.01 Impaired fasting glucose (principal); E78.00 Pure hypercholesterolemia, unspecified; I10 Essential (primary) hypertension; Z79.899 Other long term (current) drug therapy
CPT/HCPCS: 36415; 80048; 80061; 80076; 83036

== ENCOUNTER → 2020-09-03 | Outpatient (CLI) | payer MEDICAID ==
[2020-09-03 09:11] LABS: ALBUMIN 4.4 g/dL (3.5-5.0); ALKALINE PHOSPHATASE 62 U/L (38-126); ANION GAP 9 (5-19); ASPARTATE AMINO TRANSFERASE 24 U/L (17-59); BILIRUBIN,TOTAL 0.4 mg/dL (0.2-1.3); BLOOD UREA NITROGEN 14 mg/dL (7-20); CALCIUM 9.9 mg/dL (8.4-10.2); CARBON DIOXIDE 19 mmol/L (22-30); CHLORIDE 111 mmol/L (98-107); CHOLESTEROL 121.21 mg/dL (0-200); GLUCOSE 125 mg/dL (75-110); POTASSIUM 4.5 mmol/L (3.6-5.0); TOTAL PROTEIN 7.1 g/dL (6.3-8.2); TRIGLYCERIDES 69 mg/dL (<150)
[2020-09-03 09:22] LABS: DIRECT LDL 71 mg/dL (<100)
== END ==
LOC: OD 07:03
PROVIDERS: ATTEND Physician Assistant
DX: E78.00 Pure hypercholesterolemia, unspecified (principal); I10 Essential (primary) hypertension; Z79.899 Other long term (current) drug therapy
CPT/HCPCS: 36415; 80048; 80061; 80076